=== PATIENT | female | born 1985 | race Caucasian/White ===

== ENCOUNTER → 2020-04-10 | Outpatient (CLI) | payer OTHER ==
[2020-04-10 13:18] LABS: PLATELET COUNT 310 x10^3mcL (179-408); RED CELL DISTRIBUTION WIDTH 13.2 % (12.3-17.7)
[2020-04-10 13:53] LABS: ALBUMIN 3.9 g/dL (3.4-5.0); ALKALINE PHOSPHATASE 63 U/L (46-116); ALT/SGPT 39 U/L (14-59); AST/SGOT 13 U/L (15-37); BILIRUBIN TOTAL 0.26 mg/dL (0.20-1.00); CALCIUM 9.1 mg/dL (8.5-10.1); CARBON DIOXIDE 27.9 mmol/L (21-32); CHLORIDE SERUM 105 mmol/L (98-107); CHOLESTEROL 163 mg/dL (<200); CHOLESTEROL/HDL RATIO 3.4; CREATININE SERUM 0.7 mg/dL (0.6-1.0); FREE T4 0.98 ng/dL (0.76-1.46); GFR1 > 60 mL/min; GLUCOSE SERUM 89 mg/dL (74-106); HDL CHOLESTEROL 48 mg/dL (40-60); POTASSIUM SERUM 4.1 mmol/L (3.5-5.1); SODIUM SERUM 142 mmol/L (136-145); TOTAL PROTEIN, SERUM 7.7 g/dL (6.4-8.2); TRIGLYCERIDES 124 mg/dL (<150)
[2020-04-11 09:06] LABS: TESTOSTERONE, SERUM 21 ng/dL (8-48)
== END | disposition home or self-care (01) ==
LOC: RD 12:31
DX: R07.9 Chest pain, unspecified (principal); N92.6 Irregular menstruation, unspecified; R06.02 Shortness of breath
CPT/HCPCS: 82672; 84403; 84439

== ENCOUNTER → 2020-05-04 | Outpatient (CLI) | payer OTHER | END | disposition home or self-care (01) | LOC: US 13:46 | PROVIDERS: ATTEND Family Medicine | PROC: BU4CZZZ Ultrasonography of Uterus and Ovaries (ICD-10-PCS; principal; 2020-05-04) | DX: N92.6 Irregular menstruation, unspecified (principal) ==